=== PATIENT | male | born 1985 | race Caucasian/White ===

== ENCOUNTER 2018-10-27 21:46 | Emergency (ER) | payer MEDICAID ==
[~2018-10-27] VITALS: Ht 172.7 cm; Wt 81.6 kg
[2018-10-27 21:55] VITALS: BP 150/94
--- NOTE | 2018-10-27 21:55 | NUR ---
PT PLACED IN BED 9.
--- NOTE | 2018-10-27 21:57 | NUR ---
DR. STORM AT BEDSIDE. UPON DISCUSSING PLAN FOR LABS, PT REFUSING TO HAVE LABS DRAWN, STATES HE WAS JUST CHECKED AND "POKED A BUNCH" AND DIDN'T WANT ANYTHING TO BE DONE. PATIENT STATES "I CAN TAKE MY OWN PAIN MEDICATION. I WANT TO SIGN MYSELF OUT." DR. STORM MADE AWARE.
--- NOTE | 2018-10-27 21:59 | NUR ---
PT NOTED WITH WRIST BANDS FROM [facility].
--- NOTE | 2018-10-27 22:03 | NUR ---
Patient does not wish to proceed with medical care recommended by DR STORM. Patient given information related to possible complications, up to and including , which could occur as a result of leaving hospital at this time. Patient verbalizes understanding of risks involved leaving against medical advice. Patient has signed AMA form. PT AMBULATORY EVEN STEADY GAIT WHEN LEAVING, WRIST BAND REMOVED..
== END 2018-10-27 22:03 | disposition left against medical advice (07) ==
LOC: MED 21:46
DX: R53.1 Weakness (principal); F15.90 Other stimulant use, unspecified, uncomplicated; I10 Essential (primary) hypertension; F41.9 Anxiety disorder, unspecified; F32.9 Major depressive disorder, single episode, unspecified; F17.210 Nicotine dependence, cigarettes, uncomplicated; Z59.0 Homelessness; Z71.6 Tobacco abuse counseling
CPT/HCPCS: 99281

== ENCOUNTER 2018-10-27 22:29 | Emergency (ER) | payer MEDICAID ==
[~2018-10-27] VITALS: Ht 172.7 cm; Wt 72.6 kg
[2018-10-27 22:38] VITALS: BP 140/74
--- NOTE | 2018-10-27 22:38 | NUR ---
TO BED # 09 AMBULATORY
--- NOTE | 2018-10-27 22:45 | NUR ---
PT BIB SELF C/O DIZZINESS. PT STATES HE HAS BEEN DIZZY AND TIRED X2 DAYS; PT IS AROUSABLE TO VOICE; PT SPEAKING IN CLEAR AND COMPLETE SENTENCES. PT DENIES PAIN AT THIS TIME, STATES 0/10 PAIN. PT APPEARS TO BE IN NO SIGNS OF DISTRESS. BREATHING EQUAL AND UNLABORED. PT STATES HE SMOKES CIGARETTES DAILY. SAFETY PRECAUTIONS IN PLACE, BEDRAILS UP X1. PENDING ERMD EVAL. WILL CONTINUE TO MONITOR. PMH: DENIES RX: DENIES
--- NOTE | 2018-10-27 23:00 | NUR ---
PT PROVIDED URINAL, ENCOURAGE TO PROVIDE URINE SAMPLE. X-RAY AND LAB AT BEDSIDE.
--- NOTE | 2018-10-27 23:03 | NUR ---
PT PROVIDED URINE, SAMPLE SEND W/ CORI, TECH TO LAB.
[2018-10-27 23:15] LABS: APPEARANCE,URINE CLEAR (CLEAR); BILIRUBIN,URINE NEGATIVE (NEGATIVE); BLOOD, URINE NEGATIVE (NEGATIVE); COLOR,URINE YELLOW (YELLOW); LEUKOCYTE ESTERASE ,URINE NEGATIVE (NEGATIVE); NITRITE, URINE NEGATIVE (NEGATIVE); PH,URINE 5.5 (5.0-9.0); UGLUCOSE NEGATIVE (NEGATIVE)
[2018-10-27 23:15] LABS: BASOPHILS % (AUTO) 0.1 % (0.0-2.0); EOSINOPHILS # (AUTO) 0.1 K/uL (0-0.4); EOSINOPHILS % (AUTO) 0.6 % (0.0-4.0); HEMOGLOBIN 11.7 g/dL (12.0-18.0); LYMPHOCYTES # (AUTO) 0.9 K/uL (2.0-11.5); MEAN CORPUSCULAR HEMOGLOBIN 28 pg (27-31); MEAN CORPUSCULAR HGB CONC 32 g/dL (33-37); MEAN CORPUSCULAR VOLUME 84.7 fL (80-94); MONOCYTES # (AUTO) 0.4 K/uL (0.8-1.0); NEUTROPHILS # (AUTO) 12.5 K/uL (1.8-7.7); NEUTROPHILS % (AUTO) 89.9 % (42.2-75.2); PLATELET COUNT (AUTO) 380 K/uL (140-450); RED BLOOD CELL COUNT(AUTO) 4.25 MIL/uL (4.20-6.10); RED CELL DISTRIBUTION WIDTH 15.6 % (11.6-13.7); WHITE BLOOD COUNT (AUTO) 13.9 K/uL (4.8-10.8)
[2018-10-27 23:24] LABS: CARBON DIOXIDE 26.3 mmol/L (21-32); CHLORIDE 98 mmol/L (98-107); CREATININE 0.8 mg/dL (0.7-1.3); GFR ARICAN-AMERICAN 144 mL/min (>90); GLUCOSE 102 mg/dL (74-106); LYMPHOCYTES % (AUTO) 6.4 % (20.5-51.1); POTASSIUM 3.3 mmol/L (3.5-5.1); SODIUM SERUM 134 mmol/L (136-145); UREA NITROGEN, BLOOD 8 mg/dL (7-18)
[2018-10-27 23:24] LABS: BARBITURATE, URINE NEG. ng/ml (NEG <=200); BENZODIAZEPINE, URINE POS. ng/mL (NEG <=200); CANNABINOID, URINE NEG. ng/mL (NEG <=50); COCAINE, URINE NEG. ng/mL (NEG <=300); OPIATE, URINE POS. ng/mL (NEG <=2000); PHENCYCLIDINE SCREEN,URINE NEG. ng/mL (NEG <=25)
[2018-10-27] MEDS ORDERED: NACL 0.9% 1,000 ML IV ONE (23:25)
[2018-10-27] MEDS ORDERED: LEVOFLOXACIN 750 MG/D5W PREMIX 150 ML IV ONE (23:25)
[2018-10-27 23:32] LABS: ALBUMIN 3.5 g/dL (3.4-5.0); ASPARTATE AMINOTRANSFERASE 22 U/L (15-37); SALICYLATE 4.5 mg/dL (2.8-20.0); TOTAL BILIRUBIN 0.4 mg/dL (0.0-1.0)
[2018-10-27] MEDS ORDERED: FLUMAZENIL 0.5 MG/5 ML VIAL IVP ONE (23:35)
[2018-10-27] MEDS ORDERED: NALOXONE 0.4 MG/ML VIAL IVP ONE (23:40)
[2018-10-28] MEDS ORDERED: NACL 0.9% 1,000 ML IV ONE
--- NOTE | 2018-10-28 01:30 | NUR ---
PT AROUSABLE TO VOICE. PT ACTING APPROPRIATLY, SPEAKING IN CLEAR AND COMPLETE SENTENCES. BREATHING EQUAL AND UNLABORED. POSITIONED FOR COMFORT. WILL CONTINUE TO MONITOR.
--- NOTE | 2018-10-28 02:08 | NUR ---
Patient to be transferred to [facility]. Is being transferred due to insurance request. Receiving facility has accepting physician and available space. ER physician has signed transfer form. Patient has agreed to transfer and signed form. Patient belongings inventoried and will be sent with patient. Copy of nursing notes, lab reports, Physicians Orders and X-rays to be sent with patient. Report called to LAUREEN Pritchett at receiving facility. [facility] ambulance service has been called for transfer. ETA is 30 min.
--- NOTE | 2018-10-28 02:35 | NUR ---
[facility] AT BEDSIDE, REPORT PROVIDED TO TECH. YOLANDA
[2018-10-28 02:43] VITALS: BP 96/62
--- NOTE | 2018-10-28 13:00 | NUR ---
Late entry. Confirmed with RN that 1000ml 0.9 NS IV completed at 0150
== END 2018-10-28 02:42 | disposition short-term general hospital (02) ==
LOC: MED 22:29
DX: J18.1 Lobar pneumonia, unspecified organism (principal); F15.90 Other stimulant use, unspecified, uncomplicated; F11.10 Opioid abuse, uncomplicated; E87.6 Hypokalemia; D64.9 Anemia, unspecified; I10 Essential (primary) hypertension; F17.210 Nicotine dependence, cigarettes, uncomplicated; F41.9 Anxiety disorder, unspecified; F32.9 Major depressive disorder, single episode, unspecified; Z59.0 Homelessness; Z88.0 Allergy status to penicillin; Z71.6 Tobacco abuse counseling
CPT/HCPCS: 36415; 71045; 80053; 80305; 81003; 83605; 85025; 87040; 87086; 96365; 96375; 99285; G0480; G0482; J1956; J2310; J3490; J7030; Q0092; 99284